=== PATIENT | male | born 1980 ===

== ENCOUNTER 2019-01-20 07:00 | Day surgery (SDC) | payer OTHER ==
[2019-01-20 07:22] VITALS: BMI 26.5
[2019-01-20 07:30] VITALS: PULSE 89; RESP 18; TEMP 98.6; O2SAT 97
--- NOTE | 2019-01-20 07:46 | CP.SDSHP ---
Same Day Surgery H & P - History Proposed Procedure: egd. colonoscopy Pre-Op Diagnosis: FOB loss. heartburn. Iron def anemai - Previous Medical/Surgical History Cardiac: Hypertension Misc: Anemia, Other (gout) - Allergies Allergies: Allergies No Known Allergies Allergy (Verified 04/30/15 17:24) - Physical Exam Vital Signs: Vital Signs 01/20/19 07:21 Temperature 98.6 F Pulse Rate 89 Respiratory 18 Rate Blood Pressure 137/88 O2 Sat by Pulse 97 Oximetry Mental Status: Alert & Oriented x3 Neuro: WNL Heart: WNL Lungs: WNL GI: WNL - {Optional Preform as Required} Abdomen: WNL - Impression Impression: heartburn. iron def anemia. FOB loss Pt. Evaluated Today:Candidate for Anesthesia & Procedure: Yes - Date & Time Date: 01/20/19 Time: 07:46 Short Stay Discharge - Short Stay Discharge Admitting Diagnosis/Reason for Visit: FECAL ABNORMALITIES, ANEMIA, HEARTBURN Disposition: HOME/ ROUTINE
[2019-01-20] MEDS ORDERED: Lactated Ringer's 1,000 ML IV ONE (08:23)
[2019-01-20] MEDS ORDERED: Propofol 10 mg/ml Inj (20 ML) ONE (08:28)
[2019-01-20 09:34] VITALS: BP 137/75
== END 2019-01-20 10:02 | disposition home or self-care (01) ==
LOC: C.ENDO 07:00
PROVIDERS: ATTEND Internal Medicine Gastroenterology
DX: K57.30 Diverticulosis of large intestine without perforation or abscess without bleeding (principal); R19.5 Other fecal abnormalities; D50.9 Iron deficiency anemia, unspecified; K29.50 Unspecified chronic gastritis without bleeding; K64.1 Second degree hemorrhoids; B96.81 Helicobacter pylori [H. pylori] as the cause of diseases classified elsewhere; R12 Heartburn; I10 Essential (primary) hypertension; M10.9 Gout, unspecified
CPT/HCPCS: 43239; 45378; 88305; 88312; 88313; 88342; J2001; J2704; J7120